=== PATIENT | female | born 1995 | race African-American/Black ===

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

== ENCOUNTER 2018-07-02 08:35 | Day surgery (SDC) | payer BC ==
[2018-06-16 14:38] VITALS: BMI 18.5
[2018-07-02] MEDS ORDERED: PROPOFOL 20 ML ONE ×2 (09:09)
[2018-07-02 11:35] VITALS: BP 109/78; PULSE 70; TEMP 97.8
--- NOTE | 2018-07-07 11:20 | PATH ---
Surgical Pathology Report Patient Name: CHAR OWEN [facility]. Rec. #: [id number] /Age/Gender: 1995 (Age: 23) / F Account: [id number] Location: [facility] Taken: 07/02/2018 Received: 07/02/2018 Reported: 07/07/2018 Physicians: Corry Dumas M.D. Specimen(s) Received A: 2ND PORTION DUODENUM B: BX ANTRUM C: BX GE JUNCTION Clinical History Abdominal pain and vomiting Postoperative diagnosis: Gastritis Final Diagnosis A. SECOND PORTION OF DUODENUM, BIOPSY: DUODENAL MUCOSA WITH NO PATHOLOGIC FINDINGS. B. ANTRUM, BIOPSY: MILD CHRONIC GASTRITIS. IMMUNOSTAIN IS NEGATIVE FOR H. PYLORI ORGANISMS. C. GE JUNCTION, BIOPSY: COLUMNAR (GASTRIC CARDIA-TYPE) MUCOSA SHOWING MINIMAL CHRONIC INFLAMMATION. NEGATIVE FOR INTESTINAL METAPLASIA. NO ESOPHAGEAL (SQUAMOUS) MUCOSA IS IDENTIFIED. Electronically Signed Debby Fatima M.D. Gross Description A. Received in formalin, labeled "biopsy duodenum second portion" are 2 wooten, irregular portions of soft tissue measuring 0.2 and 0.3 cm. in greatest dimension. The specimens are submitted in toto in one cassette. B. Received in formalin, labeled "biopsy antrum" is a wooten, irregular portion of soft tissue measuring 0.4 cm. in greatest dimension. The specimen is submitted in toto in one cassette. C. Received in formalin, labeled "biopsy GE junction" is a wooten, irregular portion of soft tissue measuring 0.3 cm. in greatest dimension. The specimen is submitted in toto in one cassette. 07/02/201807/02/2018
== END 2018-07-02 11:35 | disposition home or self-care (01) ==
LOC: FASU-ENDO 08:35
PROVIDERS: ATTEND Internal Medicine Gastroenterology
PROC: 0DB68ZX Excision of Stomach, Via Natural or Artificial Opening Endoscopic, Diagnostic (ICD-10-PCS; 2018-07-02)
PROC: 0DB48ZX Excision of Esophagogastric Junction, Via Natural or Artificial Opening Endoscopic, Diagnostic (ICD-10-PCS; 2018-07-02)
PROC: 0DB98ZX Excision of Duodenum, Via Natural or Artificial Opening Endoscopic, Diagnostic (ICD-10-PCS; principal; 2018-07-02 09:45)
DX: K29.50 Unspecified chronic gastritis without bleeding (principal); K31.89 Other diseases of stomach and duodenum
CPT/HCPCS: 84703; 88305-TC; 88342-TC

== ENCOUNTER 2019-03-07 09:22 | Emergency (ER) | payer BC | END 2019-03-07 11:10 | disposition home or self-care (01) | LOC: JER 09:22 → JERFT 11:10 ==

== ENCOUNTER 2020-11-09 22:08 | Emergency (ER) | payer BC ==
[2020-11-09 22:17] VITALS: BP 116/54; PULSE 73; TEMP 99.3; BMI 21.7
[2020-11-09] MEDS ORDERED: VANCOMYCIN 1,000 MG in DEXTROSE 5%-WATER - 250 ML IVPB ONE (22:33)
[2020-11-09] MEDS ORDERED: VANCOMYCIN 1,000 MG VIAL (RESTRICTED TO ID ONLY) ONE (22:56)
== END 2020-11-10 01:11 | disposition home or self-care (01) ==
LOC: FER 22:08
DX: L03.116 Cellulitis of left lower limb (principal)
CPT/HCPCS: 99284-25